=== PATIENT | female | born 1995 | race African-American/Black ===

== ENCOUNTER 2024-11-28 12:25 | Emergency (ER) | payer OTHER, SELFPAY ==
[2024-11-28 13:11] VITALS: BP 123/78; PULSE 84; RESP 16; TEMP 36.6; O2SAT 100
--- NOTE | 2024-11-28 13:33 | ED.FEMALEGU ---
HPI - Female Genitourinary General Chief complaint: Urogenital-Female Stated complaint: YEAST INFECTION / BV SYMPTOMS Time Seen by Provider: 11/28/24 13:23 Source: patient and RN notes reviewed Mode of arrival: ambulatory Limitations: no limitations History of Present Illness HPI Narrative: Patient presents today with thick white vaginal discharge intermittently over the past year with vulvar itching. States she has been treated intermittently without full resolution of symptoms with topical and oral treatment. Last treatment was topically 2-3 months ago. Related Data Allergies Allergy/AdvReac Type Severity Reaction Status Date / Time No Known Allergies Allergy Unverified 05/19/15 11:00 Review of Systems Review of Systems: CONSTITUTIONAL: Denies body aches, fever, chills, or sweats. EYES: Denies visual changes, redness, or discharge. ENT: Denies rhinorrhea, congestion, sore throat, or otalgia. CARDIOVASCULAR: Denies chest pain, palpitations, or edema. RESPIRATORY: Denies cough or dyspnea. GASTROINTESTINAL: Denies abdominal pain, nausea, vomiting, or diarrhea. GENITOURINARY: Denies dysuria or hematuria. + vaginal discharge and vulvar itching SKIN: Denies rash, itching, or wounds. MUSCULOSKELETAL: Denies back pain, joint pain, or myalgia. NEUROLOGIC: Denies headache, numbness, tingling, or weakness. PSYCH: Denies depression or anxiety. PMFSH Comments At time of signature, I have reviewed and agree with nursing past medical, surgical, social and family history unless otherwise noted. Please see nursing chart for further information. There is no relevant family history pertinent to the presenting complaint Exam Narrative: GENERAL: Well-appearing, well-nourished, and in no acute distress. HEAD: Normocephalic, atraumatic. EYES: EOMI. No redness or drainage. Conjunctivae normal. ENT: Mucous membranes pink and moist. NECK: Normal AROM. CHEST: No respiratory distress. : Exam deferred by patient EXTREMITIES: Normal range of motion. No edema. SKIN: Warm, dry, no rash. Capillary refill normal. Normal skin turgor. NEURO: No focal deficits. Alert and oriented x3. Gait steady. PSYCH: Normal affect. No signs of depression or anxiety. Course Course Level of Care: Express Care Visit Vital Signs Vital signs: Vital Signs Temperature 97.8 F 11/28/24 13:11 Pulse Rate 84 11/28/24 13:11 Respiratory Rate 16 11/28/24 13:11 Blood Pressure 123/78 11/28/24 13:11 Pulse Oximetry 100 11/28/24 13:11 Temperature 97.8 F 11/28/24 13:11 Pulse Rate 84 11/28/24 13:11 Respiratory Rate 16 11/28/24 13:11 Blood Pressure 123/78 11/28/24 13:11 Pulse Oximetry 100 11/28/24 13:11 Reviewed MDM - Female Genitourinary MDM Narrative Medical decision making narrative: Patient will be treated with course of fluconazole. Also advised to treat external itching with some topical clotrimazole. Patient has an appointment with her OBGYN in 2 weeks. Anticipatory guidance given. Differential Diagnosis Differential diagnosis: Likely bacterial vaginosis, trichomoniasis and vaginitis Critical Care Time Critical Care Time Critical Care Time: No Discharge Plan Discharge Clinical Impression: Chronic vulvovaginitis Patient Disposition: Home Condition: Stable Instructions: Yeast Infection (ED) Additional Instructions: Please take the fluconazole as directed. You may use some topical clotrimazole cream (Lotrimin) externally to help with itching. Make sure your changing out of sweaty or wet clothes and wearing cotton underwear. Follow-up with your OBGYN as scheduled. Your blood pressure was elevated above 120/80 today at Urgent Care. This puts you above the threshold for follow up. Please schedule a followup visit with your personal physician as soon as possible, for further evaluation and treatment. Even blood pressure exceeding 120/80 may indicate pre-hypertension. Patient Language: Vincentian Prescriptions: New fluconazole 150 mg tablet 150 mg PO Q3D Qty: 2 0RF Follow-up/Referrals: PHYSICIAN,[employer] MAINTENANCE MECHANIC [Primary Care Provider] - Time of Disposition: 13:39
== END 2024-11-28 13:43 | disposition home or self-care (01) ==
PROVIDERS: Emergency Provider Nurse Practitioner
DX: N76.1 Subacute and chronic vaginitis (principal)
CPT/HCPCS: 99203; G0463

== ENCOUNTER 2025-02-25 10:13 | Emergency (ER) | payer OTHER, SELFPAY ==
[2025-02-25 10:39] VITALS: BP 134/81; PULSE 69; RESP 16; TEMP 36.3; O2SAT 100
[2025-02-25 10:41] LABS: EDUAAPPEAR Clear; EDUABILI Negative (Negative); EDUABLOOD Trace (Negative); EDUACOLOR1 Yellow; EDUAGLUCOSE Negative (Negative); EDUAKETONE Negative (Negative); EDUALEUKO Negative (Negative); EDUANITRATE Negative (Negative); EDUAPH 6.0; EDUAPROTEIN Negative (Negative); EDUASPGRAVITY 1.025; EDUAUROBILI 0.2
--- NOTE | 2025-02-25 10:46 | ED.FEMALEGU ---
HPI - Female Genitourinary General Chief complaint: Urogenital-Female Stated complaint: UTI Patient presents to Express Care with complaints of continued occasional burning urination, left-sided sharp flank pain and urinary urgency. patient noted she had a Trichomonas infection for about 1 year due to inability to get treated. Noted that she followed up with dry roaster about 6 weeks ago was tested again and treated for the Trichomonas symptoms did improve but then over the last weeks she has noticed continued symptoms followed up with OB was then tested for Trichomonas, gonorrhea, chlamydia, bacterial vaginosis, use which were all negative. Patient was told to come to urgent care to have urinary tract infection testing. Patient denies any fever, chills, body aches, blood in urine, or current vaginal symptoms. Related Data Home Medications ?Medication ?Instructions ?Recorded ?Confirmed ?Last Taken ?Type escitalopram oxalate 10 mg tablet mg 02/25/25 Unknown History Allergies Allergy/AdvReac Type Severity Reaction Status Date / Time No Known Allergies Allergy Verified 02/25/25 10:44 Review of Systems Constitutional: Constitutional: Reports as per HPI, Denies chills and Denies fatigue Eyes: Eyes: Reports no additional eye complaints Cardiovascular: Cardiovascular: Reports no additional cardiovascular complaints Respiratory: Respiratory: Reports no additional respiratory complaints Gastrointestinal: Gastrointestinal: Reports as per HPI, Denies abdominal pain, Denies bloating, Denies constipation, Denies heartburn, Denies diarrhea, Denies nausea and Denies vomiting Genitourinary: Genitourinary: Reports as per HPI, Denies abnormal vaginal bleeding, Reports nocturia, Reports dysuria, Reports flank pain, Denies urinary incontinence and Denies vaginal discharge Musculoskeletal: Musculoskeletal: Reports no additional musculoskeletal complaints Integumentary/Breasts: Skin/Breast: Reports system reviewed and no additional complaints, except as docu Neurologic: Reports system reviewed and no additional complaints, except as documented Psychiatric: Psychiatric: Reports no additional psychiatric complaints Endocrine: Endocrine: Reports no additional endocrine complaints Hematologic/Lymphatic: Hematologic/Lymphatic: Reports no additional hematologic/lymphatic complaints Allergic/Immunologic: Allergic/Immunologic: Reports no additional allergic/immunologic complaints Exam Const: General: healthy appearing and no acute distress Nutritional Appearance: well nourished Orientation/consciousness: patient oriented x3 Limitations: no limitations Resp: Effort & Inspection: normal respiratory effort Auscultation: clear to auscultation bilaterally Cardio: Rate: regular rate Rhythm: regular rhythm GI: GI Palp: Yes Soft to palpation, No Tenderness to palpation present (GI) and No Guarding due to palpation present (GI) Auscultation: normal bowel sounds : General: Yes bladder normal to palpation and Yes no CVA tenderness Urinary Catheter: Urinary Catheter: urine clear Back/Spine/Pelvis: Back: no CVA tenderness Skin: General skin exam: normal color Rashes: no rashes Wounds: no wounds Neuro: General: patient oriented x3 Speech: normal speech Gait exam (Neuro): Normal gait present Psych: Appearance: grossly normal Mental Status: mental status grossly normal Affect: normal affect Attitude: cooperative Course Course Level of Care: Express Care Visit Vital Signs Vital signs: Vital Signs Temperature 97.4 F L 02/25/25 10:39 Pulse Rate 69 02/25/25 10:39 Respiratory Rate 16 02/25/25 10:39 Blood Pressure 134/81 02/25/25 10:39 Pulse Oximetry 100 02/25/25 10:39 Temperature 97.4 F L 02/25/25 10:39 Pulse Rate 69 02/25/25 10:39 Respiratory Rate 16 02/25/25 10:39 Blood Pressure 134/81 02/25/25 10:39 Pulse Oximetry 100 02/25/25 10:39 MDM - Female Genitourinary MDM Narrative Medical decision making narrative: Hematuria noted on UA. Will send for culture and treat for UTI. Discharge instructions reviewed with patient, as well as provided in writing per nursing staff. The instructions also include specific and strict return/GO TO THE ER as well as f/u information. All questions have been answered, and the patient deny any further questions with discharge and discharge plan. Differential Diagnosis Differential diagnosis: Likely urinary tract infection, bacterial vaginosis, trichomoniasis, cervicitis and ovarian cyst Medical Records Attestation: I reviewed the patient's medical records. Lab Data Attestation: I reviewed the patient's lab results. Lab results narrative: hematuria Labs: Lab Results 02/25/25 Range/Units 10:38 POC Urine Color Yellow POC Urine Clarity Clear POC Urine pH 6.0 POC Ur Specif [place] 1.025 POC Urine Protein Negative (Negative) POC Ur Glucose (UA) Negative (Negative) POC Urine Ketones Negative (Negative) POC Urine Blood Trace (Negative) POC Urine Nitrite Negative (Negative) POC Urine Bilirubin Negative (Negative) POC Urine Urobilinogen 0.2 POC U Leukocyte Esteras Negative (Negative) Discharge Plan Discharge Clinical Impression: Cystitis Patient Disposition: Home Condition: Stable Instructions: Antibiotic Form, Hematuria (ED), Dysuria (ED) Additional Instructions: We will send a urine culture off to the lab; if the culture identifies an organism that the prescribed antibiotic will not treat, you will receive a phone call from an urgent care staff member and an appropriate antibiotic will be prescribed. -Your symptoms should begin to improve within a day of starting antibiotics. But you should finish all the antibiotic pills you get. Otherwise your infection might come back. -Also recommend: drink more fluid. It might help flush out germs, and it does no harm -Tylenol/ibuprofen as needed for pain -Follow-up with your primary care provider for urine recheck OR if your symptoms persist, change or worsen significantly before you can contact your personal physician then please, without delay, go to the emergency department for further evaluation. Patient Language: Irish Prescriptions: New sulfamethoxazole-trimethoprim [Bactrim DS] 800-160 mg tablet 1 tablet PO Q12H Qty: 14 0RF No Action escitalopram oxalate 10 mg tablet Follow-up/Referrals: PHYSICIAN,MUSIC INSTRUCTOR [Primary Care Provider] - Time of Disposition: 11:04
== END 2025-02-25 11:08 | disposition home or self-care (01) ==
PROVIDERS: Emergency Provider Nurse Practitioner Family
DX: N30.90 Cystitis, unspecified without hematuria (principal)
CPT/HCPCS: 81003; 87086; 99213; G0463